=== PATIENT | male | born 1985 | race Two or more races ===

== ENCOUNTER 2017-08-29 12:34 | Inpatient (IN) | payer MEDICAID ==
[~2017-08-29] VITALS: Ht 170.2 cm; Wt 92.0 kg
[2017-08-29] MEDS ORDERED: LORazepam 2 MG/ML, 1ML ONE ×6 (12:47→14:23)
[2017-08-29] MEDS ORDERED: ONDANSETRON 2MG/ML, 2ML ONE (12:47)
[2017-08-29] MEDS: LORazepam 2 MG/ML, 1ML IVPush PRN ×13 (12:52→20:10)
[2017-08-29] MEDS ORDERED: PLEASE ENTER ALLERGIES MC SCH ×2 (13:00)
[2017-08-29] MEDS ORDERED: SODIUM CHLORIDE FLUSH 10ML SYR IVF ONE (13:00)
[2017-08-29] MEDS ORDERED: MAGNESIUM SULFATE 1 GM, THIAMINE 100 MG, FOLIC ACID 1 MG, MVI ADULT 10 ML in SODIUM CHL... IV ONE (13:00)
[2017-08-29] MEDS ORDERED: ONDANSETRON 2MG/ML, 2ML IVPush ONE (13:00)
[2017-08-29 13:10] LABS: HEMATOCRIT 40.1 % (39.2-51.8); HEMOGLOBIN 13.8 g/dL (13.7-18.0); WHITE BLOOD COUNT 6.3 x10^3/uL (3.4-10)
[2017-08-29 13:20] LABS: ASPARTATE AMINO TRANSFERASE 166 U/L (15-37); BLOOD UREA NITROGEN 11 mg/dL (7-18)
[2017-08-29] MEDS ORDERED: SODIUM CHLORIDE FLUSH 10ML SYR IVF PRN (14:00)
[2017-08-29] MEDS ORDERED: ZIPRASIDONE 20 MG INJ IM ONE ×2 (14:23→14:30)
[2017-08-29] MEDS ORDERED: ROCURONIUM 10 MG/ML ONE ×2 (18:00)
[2017-08-29] MEDS ORDERED: LORazepam 2 MG/ML, 1ML IVPush PRN (18:30)
[2017-08-29] MEDS: SODIUM CHLORIDE 0.9% 1,000 ML IV SCH (18:54)
[2017-08-29] MEDS: ENOXAPARIN 40 MG/0.4 ML SQ SCH (18:57)
[2017-08-29 19:57] VITALS: BP 164/101
[2017-08-29] MEDS ORDERED: LABETALOL 5MG/ML, 20ML IV PRN (20:00)
[2017-08-29] MEDS: CHLORDIAZEPOXIDE 25 MG CAPSULE PO SCH (20:02)
[2017-08-29] MEDS ORDERED: PROPOFOL 100 ML IV ONE (20:21)
[2017-08-29] MEDS ORDERED: MIDAZOLAM 1 MG/ML, 5ML ONE (20:22)
[2017-08-29] MEDS ORDERED: MIDAZOLAM 1 MG/ML, 5ML IVPush ONE (20:30)
[2017-08-29] MEDS: MIDAZOLAM HCL 50 MG in SODIUM CHLORIDE 0.9% 240 ML IV PRN (21:43)
[2017-08-29 22:23] LABS: ABG COLLECTION SITE RIGHT RADIAL; COLLATERAL CIRCULATION TESTING NORMAL
[2017-08-29] MEDS: PIPERACILLIN/TAZO/PMX 3.375GM 50 ML IV SCH (22:27)
[2017-08-29 22:29] LABS: PATH.CAST-FLAG NOT PRESENT; SPERM-FLAG NOT PRESENT; SRC-FLAG NOT PRESENT; XTAL-FLAG NOT PRESENT; YLC-FLAG NOT PRESENT
[2017-08-29] MEDS ORDERED: PROPOFOL 10 MG/ML, 20ML IVPush ONE ×2 (23:30)
[2017-08-29] MEDS ORDERED: ROCURONIUM 10 MG/ML IVPush ONE ×3 (23:30)
[2017-08-30] MEDS: PROPOFOL 100 ML IV PRN ×7 (00:49→23:57)
[2017-08-30] MEDS: SODIUM CHLORIDE 0.9% 1,000 ML IV SCH (02:57)
[2017-08-30] MEDS: MIDAZOLAM HCL 50 MG in SODIUM CHLORIDE 0.9% 240 ML IV PRN ×3 (03:14→16:00)
[2017-08-30] MEDS: PIPERACILLIN/TAZO/PMX 3.375GM 50 ML IV SCH ×4 (04:17→21:32)
[2017-08-30] MEDS: CHLORDIAZEPOXIDE 25 MG CAPSULE PO SCH ×3 (04:17→19:46)
[2017-08-30 04:24] LABS: ABG COLLECTION SITE RIGHT BRACHIAL
[2017-08-30 04:32] LABS: HEMATOCRIT 37.4 % (39.2-51.8); HEMOGLOBIN 12.8 g/dL (13.7-18.0); WHITE BLOOD COUNT 6.5 x10^3/uL (3.4-10)
[2017-08-30 04:50] LABS: BLOOD UREA NITROGEN 11 mg/dL (7-18)
[2017-08-30 04:53] LABS: ASPARTATE AMINO TRANSFERASE 168 U/L (15-37)
[2017-08-30] MEDS: PANTOPRAZOLE 40 MG IV IVPush SCH (07:40)
[2017-08-30] MEDS: SODIUM CHLORIDE 0.45% 1,000 ML IV SCH ×2 (08:51→22:20)
[2017-08-30] MEDS ORDERED: THIAMINE 100 MG, MVI ADULT 10 ML, FOLIC ACID 1 MG in D5%-0.9% NACL 1,000 ML IV SCH (15:00)
[2017-08-30] MEDS: ENOXAPARIN 40 MG/0.4 ML SQ SCH (16:00)
[2017-08-30] MEDS: LORazepam 2 MG/ML, 1ML IVPush PRN ×2 (19:46→21:31)
[2017-08-30] MEDS: MIDAZOLAM HCL 100 MG in SODIUM CHLORIDE 0.9% 230 ML IV PRN (23:57)
[2017-08-31] MEDS: SODIUM CHLORIDE 0.45% 1,000 ML IV SCH ×2 (00:19→08:23)
[2017-08-31] MEDS: LORazepam 2 MG/ML, 1ML IVPush PRN (01:14)
[2017-08-31 04:16] LABS: ABG COLLECTION SITE RIGHT BRACHIAL
[2017-08-31 04:24] LABS: HEMATOCRIT 34.2 % (39.2-51.8); HEMOGLOBIN 11.7 g/dL (13.7-18.0); WHITE BLOOD COUNT 3.8 x10^3/uL (3.4-10)
[2017-08-31 04:30] LABS: ASPARTATE AMINO TRANSFERASE 117 U/L (15-37); BLOOD UREA NITROGEN 7 mg/dL (7-18)
[2017-08-31] MEDS: CHLORDIAZEPOXIDE 25 MG CAPSULE PO SCH ×3 (04:52→22:47)
[2017-08-31] MEDS: PROPOFOL 100 ML IV PRN ×6 (04:53→22:48)
[2017-08-31] MEDS: PIPERACILLIN/TAZO/PMX 3.375GM 50 ML IV SCH ×4 (04:53→22:47)
[2017-08-31] MEDS: FOLIC ACID 1 MG TABLET NG SCH (09:13)
[2017-08-31] MEDS: THIAMINE 100MG TABLET NG SCH (09:13)
[2017-08-31] MEDS: PANTOPRAZOLE 40 MG IV IVPush SCH (09:13)
[2017-08-31] MEDS: MULTIVITAMIN LIQUID NG SCH (09:14)
[2017-08-31] MEDS: FENTANYL PF 100 MCG/2ML IVPush PRN (09:35)
[2017-08-31] MEDS ORDERED: POTASSIUM CHLORIDE 20 MEQ TAB.ER.PRT PO ONE (12:00)
[2017-08-31] MEDS: MIDAZOLAM HCL 100 MG in SODIUM CHLORIDE 0.9% 230 ML IV PRN (12:19)
[2017-08-31] MEDS ORDERED: POTASSIUM CHLORIDE 10% 40 MEQ/30 ML UDC PO ONE (12:30)
[2017-08-31] MEDS: ENOXAPARIN 40 MG/0.4 ML SQ SCH (16:02)
[2017-09-01] MEDS: PROPOFOL 100 ML IV PRN (00:59)
[2017-09-01] MEDS: FENTANYL PF 100 MCG/2ML IVPush PRN (02:53)
[2017-09-01] MEDS: MIDAZOLAM HCL 100 MG in SODIUM CHLORIDE 0.9% 230 ML IV PRN (02:56)
[2017-09-01] MEDS: PIPERACILLIN/TAZO/PMX 3.375GM 50 ML IV SCH ×3 (04:36→17:49)
[2017-09-01] MEDS: CHLORDIAZEPOXIDE 25 MG CAPSULE PO SCH ×3 (04:36→20:08)
[2017-09-01 04:37] LABS: ABG COLLECTION SITE RIGHT BRACHIAL
[2017-09-01 04:43] LABS: HEMATOCRIT 35.1 % (39.2-51.8); WHITE BLOOD COUNT 3.5 x10^3/uL (3.4-10)
[2017-09-01 04:51] LABS: BLOOD UREA NITROGEN 5 mg/dL (7-18)
[2017-09-01 04:54] LABS: ASPARTATE AMINO TRANSFERASE 107 U/L (15-37)
[2017-09-01] MEDS: PANTOPRAZOLE 40 MG IV IVPush SCH (07:41)
[2017-09-01] MEDS ORDERED: POTASSIUM CHLORIDE 10% 40 MEQ/30 ML UDC PO ONE (08:00)
[2017-09-01] MEDS: MULTIVITAMIN LIQUID NG SCH (08:18)
[2017-09-01] MEDS: THIAMINE 100MG TABLET NG SCH (08:18)
[2017-09-01] MEDS: FOLIC ACID 1 MG TABLET NG SCH (08:18)
[2017-09-01] MEDS: LORazepam 2 MG/ML, 1ML IVPush PRN ×2 (15:15→20:29)
[2017-09-01] MEDS: ENOXAPARIN 40 MG/0.4 ML SQ SCH (17:49)
[2017-09-01 20:18] VITALS: BP 149/76
[2017-09-02] MEDS: PIPERACILLIN/TAZO/PMX 3.375GM 50 ML IV SCH ×4 (00:17→19:45)
[2017-09-02 00:23] VITALS: BP 156/89
[2017-09-02] MEDS: LORazepam 2 MG/ML, 1ML IVPush PRN ×2 (02:42→20:28)
[2017-09-02] MEDS: CHLORDIAZEPOXIDE 25 MG CAPSULE PO SCH ×3 (04:29→19:44)
[2017-09-02 04:57] LABS: ABG COLLECTION SITE RIGHT BRACHIAL
[2017-09-02 05:17] LABS: ASPARTATE AMINO TRANSFERASE 115 U/L (15-37); BLOOD UREA NITROGEN 5 mg/dL (7-18)
[2017-09-02 08:17] VITALS: BP 140/79
[2017-09-02] MEDS: POTASSIUM CHLORIDE 20 MEQ TAB.ER.PRT PO SCH ×2 (09:04→18:23)
[2017-09-02] MEDS: FOLIC ACID 1 MG TABLET NG SCH (09:04)
[2017-09-02] MEDS: THIAMINE 100MG TABLET NG SCH (09:04)
[2017-09-02] MEDS: PANTOPRAZOLE 40 MG IV IVPush SCH (09:04)
[2017-09-02] MEDS: MULTIVITAMIN LIQUID NG SCH (09:06)
[2017-09-02 14:58] VITALS: BP 148/90
[2017-09-02] MEDS: ENOXAPARIN 40 MG/0.4 ML SQ SCH (18:22)
[2017-09-02 19:30] VITALS: BP 145/88
[2017-09-03 01:41] VITALS: BP 166/94
[2017-09-03] MEDS: PIPERACILLIN/TAZO/PMX 3.375GM 50 ML IV SCH ×4 (02:20→20:57)
[2017-09-03] MEDS: CHLORDIAZEPOXIDE 25 MG CAPSULE PO SCH ×3 (04:29→20:57)
[2017-09-03 05:53] LABS: ASPARTATE AMINO TRANSFERASE 133 U/L (15-37); BLOOD UREA NITROGEN 9 mg/dL (7-18)
[2017-09-03 07:33] VITALS: BP 165/93
[2017-09-03] MEDS: THIAMINE 100MG TABLET NG SCH (08:01)
[2017-09-03] MEDS: PANTOPRAZOLE 40 MG IV IVPush SCH (08:01)
[2017-09-03] MEDS: MULTIVITAMIN LIQUID NG SCH (08:01)
[2017-09-03] MEDS: FOLIC ACID 1 MG TABLET NG SCH (08:01)
[2017-09-03] MEDS: LORazepam 2 MG/ML, 1ML IVPush PRN ×2 (10:14→20:57)
[2017-09-03] MEDS ORDERED: HALOPERIDOL 5 MG/ML IM PRN (13:30)
[2017-09-03 13:59] VITALS: BP 170/89
[2017-09-03] MEDS: ENOXAPARIN 40 MG/0.4 ML SQ SCH (16:42)
[2017-09-03 18:55] VITALS: BP 163/108
[2017-09-04 02:56] VITALS: BP 120/72
[2017-09-04] MEDS: LORazepam 2 MG/ML, 1ML IVPush PRN (03:13)
[2017-09-04] MEDS: PIPERACILLIN/TAZO/PMX 3.375GM 50 ML IV SCH ×2 (03:13→08:33)
[2017-09-04 05:26] LABS: BLOOD UREA NITROGEN 10 mg/dL (7-18); HEMATOCRIT 41.7 % (39.2-51.8); HEMOGLOBIN 14.4 g/dL (13.7-18.0); WHITE BLOOD COUNT 5.6 x10^3/uL (3.4-10)
[2017-09-04 05:31] LABS: ASPARTATE AMINO TRANSFERASE 139 U/L (15-37)
[2017-09-04] MEDS ORDERED: FLU VACC QS2017-18 (36MOS+) UP/PF 0.5 ML IM-VACC ONE (07:30)
[2017-09-04] MEDS: MULTIVITAMIN LIQUID NG SCH (07:42)
[2017-09-04] MEDS: CHLORDIAZEPOXIDE 25 MG CAPSULE PO SCH (07:42)
[2017-09-04] MEDS: PANTOPRAZOLE 40 MG IV IVPush SCH (07:42)
[2017-09-04] MEDS: FOLIC ACID 1 MG TABLET NG SCH (07:42)
[2017-09-04] MEDS: THIAMINE 100MG TABLET NG SCH (07:42)
[2017-09-04 07:59] VITALS: BP 150/84
[2017-09-04] MEDS ORDERED: PHEN100C PO (08:31)
[2017-09-04] MEDS ORDERED: CHLO25CA9 PO (08:44)
[2017-09-04] MEDS ORDERED: MULT-412 PO (08:44)
[2017-09-04] MEDS ORDERED: MUPI22OI2 TP (08:44)
[2017-09-04] MEDS ORDERED: MAGN400T26 PO (08:44)
[2017-09-04] MEDS ORDERED: FOLI-17 NG (08:44)
[2017-09-04] MEDS ORDERED: THIA100T6 NG (08:44)
[2017-09-04] MEDS ORDERED: BACL-19 PO (08:46)
[2017-09-04] MEDS ORDERED: BACLOFEN 10 MG TABLET PO SCH (09:00)
[2017-09-04] MEDS ORDERED: MUPIROCIN OINT 2%, 22GM TP SCH (09:00)
[2017-09-04] MEDS ORDERED: PHENYTOIN 100 MG CAPSULE PO SCH (09:00)
== END 2017-09-04 13:06 | disposition home or self-care (01) | DRG 208 ==
LOC: ED 13:52 → EDIP 13:53 → ED 14:18 → CCU 16:33 → 3NE 09-01 15:52
PROVIDERS: ADMIT Hospitalist; ATTEND Hospitalist
PROC: 0T9B70Z Drainage of Bladder with Drainage Device, Via Natural or Artificial Opening (ICD-10-PCS; principal; 2017-08-29)
PROC: 5A1945Z Respiratory Ventilation, 24-96 Consecutive Hours (ICD-10-PCS; 2017-08-29)
PROC: 0BH17EZ Insertion of Endotracheal Airway into Trachea, Via Natural or Artificial Opening (ICD-10-PCS; 2017-08-29)
DX: J96.00 Acute respiratory failure, unspecified whether with hypoxia or hypercapnia (principal); G93.41 Metabolic encephalopathy; E43 Unspecified severe protein-calorie malnutrition; Z99.11 Dependence on respirator [ventilator] status; F10.231 Alcohol dependence with withdrawal delirium; E87.0 Hyperosmolality and hypernatremia; D69.6 Thrombocytopenia, unspecified; J98.11 Atelectasis; F22 Delusional disorders; G40.909 Epilepsy, unspecified, not intractable, without status epilepticus; T88.4XXA Failed or difficult intubation, initial encounter; Z68.31 Body mass index [BMI] 31.0-31.9, adult
CPT/HCPCS: 36415; 36600; 71010; 76700; 80053; 80307; 81001; 82140; 82550; 82803; 83690; 83735; 84100; 84478; 85025; 85610; 85730; 87040; 87070; 87081; 87086; 87205; 90686; 93005; 94002; 94003; 96372; 96374; 96375; 96376; J1650; J2250; J2405; J2543; J2704; J3010; J3411; J3475; J3486; J7042; C9113; G0479; J2060; J7030; J7050

== ENCOUNTER 2020-03-26 23:45 | Inpatient (IN) | payer MEDICAID ==
[~2020-03-26] VITALS: Ht 172.7 cm; Wt 105.7 kg
[~2020-03-26 23:45] MED LIST: BACL-19 PO; CHLO25CA9 PO; FOLI-17 NG; MAGN400T26 PO; MULT-412 PO; MUPI22OI2 TP; PHEN100C PO; THIA100T67 NG
--- NOTE | 2020-03-26 23:56 | NUR ---
pt transferred from [facility], [place] for abd pain r/t infected gallstones. pt was recently dc from [facility] [place] for etoh detox. pt was transferred for gi specialist as he is a chronic drinker and has liver cirrhosis. 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 pt states received 1g rocephin and 4mg morphine architectural project captain. pt connected to monitors. vss. Dr. Quarles to bs for assessment. plan to admit.
--- NOTE | 2020-03-26 23:59 | NUR ---
Per pt ok to give information via phone to Katty Miller and Bert Cox .
--- NOTE | 2020-03-27 00:01 | NUR ---
pt last ate at 1600 and last drank water with pills at 2044.
[2020-03-27] MEDS ORDERED: METRONIDAZOLE PMX 500MG/100ML 100 ML ONE (00:17)
[2020-03-27] MEDS ORDERED: HYDR-826 PO (00:26)
[2020-03-27] MEDS ORDERED: allegra (00:26)
[2020-03-27] MEDS ORDERED: LEVE500T53 PO (00:26)
[2020-03-27] MEDS ORDERED: flonase (00:26)
[2020-03-27] MEDS ORDERED: THIA100T27 PO (00:26)
[2020-03-27] MEDS ORDERED: FOLI-17 PO (00:26)
[2020-03-27] MEDS ORDERED: AMLO10TA8 PO (00:26)
[2020-03-27] MEDS ORDERED: METO25TA35 PO (00:26)
--- NOTE | 2020-03-27 00:26 | NUR ---
pt resting in room. vss. pt medicated per mar. no needs expressed. call light within reach. awaiting room assignmetn.
[2020-03-27] MEDS ORDERED: METRONIDAZOLE PMX 500MG/100ML 100 ML IV ONE (00:30)
--- NOTE | 2020-03-27 01:08 | NUR ---
report to JAROCHO Kong. pt ready for transport.
[2020-03-27 02:20] VITALS: BP 121/74
[2020-03-27] MEDS ORDERED: METRONIDAZOLE PMX 500MG/100ML 100 ML IV SCH (02:30)
[2020-03-27] MEDS: morphine SULFATE 10 MG/ML, 1ML IVPush PRN ×5 (02:35→20:54)
[2020-03-27] MEDS: PIPERACILLIN/TAZO/PMX 3.375GM 50 ML IV SCH ×4 (03:12→21:33)
[2020-03-27 04:11] LABS: INTERNATIONAL NORMALIZED RATIO 2.5 (0.93-1.1); PROTHROMBIN TIME 26.8 Seconds (9.6-11.5)
[2020-03-27 07:27] VITALS: BP 118/72
[2020-03-27] MEDS: AMLODIPINE 10 MG TAB PO SCH (08:20)
[2020-03-27] MEDS: LEVETIRACETAM 500 MG TABLET PO SCH ×2 (08:20→20:53)
[2020-03-27] MEDS: METOPROLOL TARTRATE 50 MG TAB PO SCH ×2 (08:20→20:53)
[2020-03-27] MEDS: FOLIC ACID 1 MG TABLET PO SCH (08:20)
[2020-03-27] MEDS: THIAMINE 100MG TABLET PO SCH (08:20)
[2020-03-27] MEDS: DIPHENHYDRAMINE 25 MG CAPSULE PO PRN ×2 (09:04→21:34)
[2020-03-27 09:08] LABS: MEAN CORPUSCULAR HEMOGLOBIN 35.6 pg (27.5-34.5); MEAN CORPUSCULAR HGB CONC 34.1 g/dL (33.2-36.2); MEAN CORPUSCULAR VOLUME 104.3 fL (81-97); MEAN PLATELET VOLUME 9.4 fL (7.4-10.4); PLATELET COUNT 213 x10^3/uL (130-400); RED BLOOD COUNT 3.47 x10^6/uL (4.38-5.82)
[2020-03-27 09:18] LABS: ALANINE AMINOTRANSFERASE 52 U/L (12-78); ALBUMIN 1.6 g/dL (3.4-5.0); ANION GAP 8 mmol/L (5-15); CALCIUM 7.7 mg/dL (8.5-10.1); CHLORIDE 108 mmol/L (98-107)
[2020-03-27 09:21] LABS: ALKALINE PHOSPHATASE 153 U/L (45-117)
[2020-03-27 09:28] LABS: BASOPHILS # (AUTO) 0.03 x10^3/uL (0-0.1); BASOPHILS % (AUTO) 0 % (0-1); CREATININE 0.96 mg/dL (0.7-1.3); EOSINOPHILS # (AUTO) 0.54 x10^3/uL (0-0.4); EOSINOPHILS % (AUTO) 4 % (1-7); LYMPHOCYTES % (AUTO) 8 % (22-44); MD SCAN; MONOCYTES # (AUTO) 1.27 x10^3/uL (0.2-0.8); MONOCYTES % (AUTO) 9 % (2-9); NEUTROPHILS # (AUTO) 11.67 x10^3/uL (1.8-6.8); NEUTROPHILS % (AUTO) 79 % (42-75); TOTAL PROTEIN 5.4 g/dL (6.4-8.2)
[2020-03-27 09:29] LABS: BILIRUBIN,TOTAL 23.5 mg/dL (0.2-1.0)
[2020-03-27 12:57] VITALS: BP 105/62
[2020-03-27 16:25] LABS: AMPHETAMINE SCREEN, URINE Negative (Negative); BARBITURATE SCREEN, URINE Positive (Negative); BENZODIAZEPINE SCREEN, URINE Negative (Negative); CANNABINOID SCREEN, URINE Negative (Negative); COCAINE SCREEN, URINE Negative (Negative); METHADONE SCREEN, URINE Negative (Negative); OPIATE SCREEN, URINE Positive (Negative)
[2020-03-27 16:44] LABS: MICROSCOPIC INDICATED
[2020-03-27 16:54] LABS: CULTURE INDICATED? YES
[2020-03-27] MEDS: POTASSIUM CHLORIDE 20 MEQ TAB.ER.PRT PO SCH (17:08)
[2020-03-27 18:56] VITALS: BP 116/69
[2020-03-28 01:46] VITALS: BP 105/64
[2020-03-28] MEDS: morphine SULFATE 10 MG/ML, 1ML IVPush PRN ×5 (01:55→20:57)
[2020-03-28] MEDS: PIPERACILLIN/TAZO/PMX 3.375GM 50 ML IV SCH ×4 (03:17→22:26)
[2020-03-28] MEDS: DIPHENHYDRAMINE 25 MG CAPSULE PO PRN (04:26)
[2020-03-28 05:15] LABS: MEAN CORPUSCULAR HEMOGLOBIN 35.4 pg (27.5-34.5); MEAN CORPUSCULAR HGB CONC 33.7 g/dL (33.2-36.2); MEAN CORPUSCULAR VOLUME 105.2 fL (81-97); MEAN PLATELET VOLUME 9.7 fL (7.4-10.4); PLATELET COUNT 206 x10^3/uL (130-400); RED BLOOD COUNT 3.38 x10^6/uL (4.38-5.82); RED CELL DISTRIBUTION WIDTH 16.6 % (9.4-14.8)
[2020-03-28 05:26] LABS: ALBUMIN 1.5 g/dL (3.4-5.0); ANION GAP 8 mmol/L (5-15); CALCIUM 7.6 mg/dL (8.5-10.1); CHLORIDE 102 mmol/L (98-107)
[2020-03-28 05:40] LABS: ALANINE AMINOTRANSFERASE 51 U/L (12-78); ALKALINE PHOSPHATASE 144 U/L (45-117)
[2020-03-28 05:42] LABS: BILIRUBIN,TOTAL 24.6 mg/dL (0.2-1.0); CREATININE 1.04 mg/dL (0.7-1.3); TOTAL PROTEIN 5.5 g/dL (6.4-8.2)
[2020-03-28 06:05] LABS: BASOPHILS # (AUTO) 0.02 x10^3/uL (0-0.1); BASOPHILS % (AUTO) 0 % (0-1); EOSINOPHILS # (AUTO) 0.62 x10^3/uL (0-0.4); EOSINOPHILS % (AUTO) 4 % (1-7); LYMPHOCYTES # (AUTO) 1.02 x10^3/uL (1-3.4); LYMPHOCYTES % (AUTO) 7 % (22-44); MD SCAN; MONOCYTES # (AUTO) 1.08 x10^3/uL (0.2-0.8); MONOCYTES % (AUTO) 7 % (2-9); NEUTROPHILS # (AUTO) 12.01 x10^3/uL (1.8-6.8); NEUTROPHILS % (AUTO) 81 % (42-75)
[2020-03-28 07:18] VITALS: BP 104/67
[2020-03-28] MEDS: POTASSIUM CHLORIDE 20 MEQ TAB.ER.PRT PO SCH ×2 (09:06→18:31)
[2020-03-28] MEDS: AMLODIPINE 10 MG TAB PO SCH (09:07)
[2020-03-28] MEDS: FOLIC ACID 1 MG TABLET PO SCH (09:07)
[2020-03-28] MEDS: THIAMINE 100MG TABLET PO SCH (09:07)
[2020-03-28] MEDS: LEVETIRACETAM 500 MG TABLET PO SCH ×2 (09:07→20:56)
[2020-03-28] MEDS: METOPROLOL TARTRATE 50 MG TAB PO SCH ×2 (09:07→20:57)
[2020-03-28] MEDS: prednisOLONE 15 MG/5 ML ORAL SOLN PO SCH (09:20)
[2020-03-28] MEDS ORDERED: DEXTROSE 5% IV ONE ×2 (09:30→11:00)
[2020-03-28] MEDS ORDERED: ACETYLCYSTEINE IV ONE ×2 (09:30→11:00)
[2020-03-28 10:01] LABS: INTERNATIONAL NORMALIZED RATIO 2.32 (0.93-1.1); PROTHROMBIN TIME 24.8 Seconds (9.6-11.5)
[2020-03-28 14:16] VITALS: BP 122/72
[2020-03-28] MEDS ORDERED: ACETYLCYSTEINE 10,000 MG in DEXTROSE 5% 1,000 ML IV ONE (15:00)
[2020-03-28 18:57] VITALS: BP 106/71
[2020-03-29] MEDS: morphine SULFATE 10 MG/ML, 1ML IVPush PRN ×8 (00:15→23:56)
[2020-03-29 02:14] VITALS: BP 103/66
[2020-03-29] MEDS: PIPERACILLIN/TAZO/PMX 3.375GM 50 ML IV SCH ×2 (04:35→10:41)
[2020-03-29 04:56] LABS: BASOPHILS # (AUTO) 0.01 x10^3/uL (0-0.1); BASOPHILS % (AUTO) 0 % (0-1); EOSINOPHILS # (AUTO) 0.06 x10^3/uL (0-0.4); EOSINOPHILS % (AUTO) 0 % (1-7); LYMPHOCYTES # (AUTO) 0.85 x10^3/uL (1-3.4); LYMPHOCYTES % (AUTO) 6 % (22-44); MD NO; MEAN CORPUSCULAR HEMOGLOBIN 35.5 pg (27.5-34.5); MEAN CORPUSCULAR HGB CONC 34.1 g/dL (33.2-36.2); MEAN CORPUSCULAR VOLUME 104.2 fL (81-97); MEAN PLATELET VOLUME 9.8 fL (7.4-10.4); MONOCYTES # (AUTO) 1.15 x10^3/uL (0.2-0.8); MONOCYTES % (AUTO) 8 % (2-9); NEUTROPHILS # (AUTO) 13.32 x10^3/uL (1.8-6.8); NEUTROPHILS % (AUTO) 87 % (42-75); PLATELET COUNT 202 x10^3/uL (130-400)
[2020-03-29 05:03] LABS: ALANINE AMINOTRANSFERASE 45 U/L (12-78); ALBUMIN 1.4 g/dL (3.4-5.0); ANION GAP 9 mmol/L (5-15); CALCIUM 7.8 mg/dL (8.5-10.1); CHLORIDE 101 mmol/L (98-107)
[2020-03-29 05:05] LABS: ALKALINE PHOSPHATASE 132 U/L (45-117)
[2020-03-29 05:06] LABS: CREATININE 0.89 mg/dL (0.7-1.3)
[2020-03-29 05:11] LABS: TOTAL PROTEIN 5.2 g/dL (6.4-8.2)
[2020-03-29 05:12] LABS: BILIRUBIN,TOTAL 24.5 mg/dL (0.2-1.0)
[2020-03-29 07:30] VITALS: BP 98/71
[2020-03-29] MEDS: POTASSIUM CHLORIDE 20 MEQ TAB.ER.PRT PO SCH ×2 (08:01→15:37)
[2020-03-29] MEDS: METOPROLOL TARTRATE 50 MG TAB PO SCH ×2 (08:02→20:04)
[2020-03-29] MEDS: AMLODIPINE 10 MG TAB PO SCH (08:02)
[2020-03-29] MEDS: LEVETIRACETAM 500 MG TABLET PO SCH ×2 (08:02→20:03)
[2020-03-29] MEDS: FOLIC ACID 1 MG TABLET PO SCH (08:02)
[2020-03-29] MEDS: THIAMINE 100MG TABLET PO SCH (08:02)
[2020-03-29] MEDS: prednisOLONE 15 MG/5 ML ORAL SOLN PO SCH (08:03)
[2020-03-29] MEDS ORDERED: LACTULOSE 10 GM/15 ML UDC PO PRN (09:00)
[2020-03-29 12:30] VITALS: BP 109/71
[2020-03-29 18:25] VITALS: BP 122/74
[2020-03-29] MEDS: DIPHENHYDRAMINE 25 MG CAPSULE PO PRN (20:04)
[2020-03-29] MEDS: TRAZODONE 50MG TABLET PO PRN (23:56)
[2020-03-30 01:20] VITALS: BP 117/68
[2020-03-30] MEDS ORDERED: MORPHINE SULFATE 4 MG/ML, 1ML ONE (04:21)
[2020-03-30] MEDS: morphine SULFATE 10 MG/ML, 1ML IVPush PRN ×6 (04:35→20:58)
[2020-03-30 05:59] LABS: MEAN CORPUSCULAR HEMOGLOBIN 35.8 pg (27.5-34.5); MEAN CORPUSCULAR HGB CONC 34.2 g/dL (33.2-36.2); MEAN CORPUSCULAR VOLUME 104.7 fL (81-97); MEAN PLATELET VOLUME 9.4 fL (7.4-10.4); PLATELET COUNT 199 x10^3/uL (130-400); RED BLOOD COUNT 3.26 x10^6/uL (4.38-5.82); RED CELL DISTRIBUTION WIDTH 16.4 % (9.4-14.8)
[2020-03-30 06:07] LABS: ALANINE AMINOTRANSFERASE 49 U/L (12-78); ALBUMIN 1.5 g/dL (3.4-5.0); ANION GAP 9 mmol/L (5-15); CALCIUM 7.8 mg/dL (8.5-10.1); CHLORIDE 107 mmol/L (98-107)
[2020-03-30 06:09] LABS: ALKALINE PHOSPHATASE 160 U/L (45-117)
[2020-03-30 06:10] LABS: CREATININE 0.77 mg/dL (0.7-1.3)
[2020-03-30 06:14] LABS: BILIRUBIN,TOTAL 23.1 mg/dL (0.2-1.0)
[2020-03-30 06:17] LABS: TOTAL PROTEIN 5.2 g/dL (6.4-8.2)
[2020-03-30 06:35] LABS: BASOPHILS % (AUTO) 0 % (0-1); EOSINOPHILS # (AUTO) 0.01 x10^3/uL (0-0.4); EOSINOPHILS % (AUTO) 0 % (1-7); LYMPHOCYTES # (AUTO) 0.64 x10^3/uL (1-3.4); LYMPHOCYTES % (AUTO) 4 % (22-44); MD SCAN; MONOCYTES # (AUTO) 1.15 x10^3/uL (0.2-0.8); MONOCYTES % (AUTO) 8 % (2-9); NEUTROPHILS # (AUTO) 13.49 x10^3/uL (1.8-6.8); NEUTROPHILS % (AUTO) 88 % (42-75)
[2020-03-30 07:00] VITALS: BP 104/66
[2020-03-30] MEDS: THIAMINE 100MG TABLET PO SCH (08:06)
[2020-03-30] MEDS: FOLIC ACID 1 MG TABLET PO SCH (08:06)
[2020-03-30] MEDS: METOPROLOL TARTRATE 50 MG TAB PO SCH ×2 (08:06→20:57)
[2020-03-30] MEDS: POTASSIUM CHLORIDE 20 MEQ TAB.ER.PRT PO SCH ×2 (08:06→17:57)
[2020-03-30] MEDS: LEVETIRACETAM 500 MG TABLET PO SCH ×2 (08:06→20:57)
[2020-03-30] MEDS: AMLODIPINE 10 MG TAB PO SCH (08:06)
[2020-03-30] MEDS: prednisOLONE 15 MG/5 ML ORAL SOLN PO SCH (08:07)
[2020-03-30] MEDS: CHOLESTYRAMINE LIGHT 4GM PACKET PO SCH ×2 (11:21→22:22)
[2020-03-30] MEDS: SPIRONOLACTONE 25 MG TABLET PO SCH ×2 (11:23→20:57)
[2020-03-30 13:49] VITALS: BP 114/66
[2020-03-30 20:17] VITALS: BP 114/64
[2020-03-30] MEDS: DIPHENHYDRAMINE 25 MG CAPSULE PO PRN (20:57)
[2020-03-30] MEDS: TRAZODONE 50MG TABLET PO PRN (20:57)
[2020-03-31] MEDS: morphine SULFATE 10 MG/ML, 1ML IVPush PRN ×2 (00:28→04:13)
[2020-03-31 01:33] VITALS: BP 105/66
[2020-03-31 05:53] LABS: BASOPHILS % (AUTO) 0 % (0-1); EOSINOPHILS # (AUTO) 0.12 x10^3/uL (0-0.4); EOSINOPHILS % (AUTO) 1 % (1-7); LYMPHOCYTES % (AUTO) 11 % (22-44); MD NO; MEAN CORPUSCULAR HEMOGLOBIN 35.4 pg (27.5-34.5); MEAN CORPUSCULAR HGB CONC 33.8 g/dL (33.2-36.2); MEAN CORPUSCULAR VOLUME 104.8 fL (81-97); MEAN PLATELET VOLUME 9.4 fL (7.4-10.4); MONOCYTES # (AUTO) 1.37 x10^3/uL (0.2-0.8); MONOCYTES % (AUTO) 9 % (2-9); NEUTROPHILS # (AUTO) 11.89 x10^3/uL (1.8-6.8); NEUTROPHILS % (AUTO) 79 % (42-75); PLATELET COUNT 177 x10^3/uL (130-400); RED BLOOD COUNT 3.21 x10^6/uL (4.38-5.82); RED CELL DISTRIBUTION WIDTH 16.8 % (9.4-14.8)
[2020-03-31 06:08] LABS: ALBUMIN 1.4 g/dL (3.4-5.0); ANION GAP 8 mmol/L (5-15); CALCIUM 7.6 mg/dL (8.5-10.1); CHLORIDE 111 mmol/L (98-107)
[2020-03-31 06:11] LABS: ALANINE AMINOTRANSFERASE 50 U/L (12-78); ALKALINE PHOSPHATASE 163 U/L (45-117)
[2020-03-31 06:14] LABS: CREATININE 0.68 mg/dL (0.7-1.3); TOTAL PROTEIN 5.3 g/dL (6.4-8.2)
[2020-03-31 06:15] LABS: BILIRUBIN,TOTAL 21.8 mg/dL (0.2-1.0)
[2020-03-31 07:02] VITALS: BP 110/72
[2020-03-31] MEDS: POTASSIUM CHLORIDE 20 MEQ TAB.ER.PRT PO SCH ×2 (08:13→09:00)
[2020-03-31] MEDS: LEVETIRACETAM 500 MG TABLET PO SCH (08:13)
[2020-03-31] MEDS: THIAMINE 100MG TABLET PO SCH (08:13)
[2020-03-31] MEDS: SPIRONOLACTONE 25 MG TABLET PO SCH (08:14)
[2020-03-31] MEDS: FOLIC ACID 1 MG TABLET PO SCH (08:14)
[2020-03-31] MEDS: CHOLESTYRAMINE LIGHT 4GM PACKET PO SCH (08:14)
[2020-03-31] MEDS: prednisOLONE 15 MG/5 ML ORAL SOLN PO SCH (08:14)
[2020-03-31] MEDS ORDERED: METOPROLOL TARTRATE 50 MG TAB PO SCH (09:00)
[2020-03-31 13:24] VITALS: BP 127/79
[2020-03-31] MEDS ORDERED: LACT10SO24 PO (15:45)
[2020-03-31] MEDS ORDERED: METO50TA82 PO (15:45)
[2020-03-31] MEDS ORDERED: PRED15SO3 PO (15:45)
[2020-03-31] MEDS ORDERED: POTA20TA6 PO (15:45)
== END 2020-03-31 18:21 | disposition home or self-care (01) | DRG 280 ==
LOC: ED 03-27 00:18 → EDIP 03-27 00:20 → 4NE 03-27 02:15
PROVIDERS: ATTEND Internal Medicine
DX: K70.10 Alcoholic hepatitis without ascites (principal); K70.30 Alcoholic cirrhosis of liver without ascites; K72.90 Hepatic failure, unspecified without coma; D68.59 Other primary thrombophilia; K80.00 Calculus of gallbladder with acute cholecystitis without obstruction; E87.70 Fluid overload, unspecified; E87.1 Hypo-osmolality and hyponatremia; F17.200 Nicotine dependence, unspecified, uncomplicated; G40.909 Epilepsy, unspecified, not intractable, without status epilepticus; I10 Essential (primary) hypertension; L29.9 Pruritus, unspecified; E87.6 Hypokalemia; E66.9 Obesity, unspecified; D53.9 Nutritional anemia, unspecified; Z79.899 Other long term (current) drug therapy
CPT/HCPCS: 36415; 74181; 76700; 80053; 80307; 81001; 82140; 83605; 83735; 84100; 85025; 85610; 86704; 86706; 86708; 86803; 87040; 87086; 87340; G0378; J0132; J2543; J7060; J7070; J2270; J7510; Q0163; Q0177